=== PATIENT | male | born 1980 | race Two or more races ===

== ENCOUNTER 2019-01-11 00:55 | Emergency (ER) | payer MEDICAID ==
[~2019-01-11] VITALS: Ht 177.8 cm; Wt 95.7 kg
--- NOTE | 2019-01-11 01:23 | NUR ---
CANDELARIO FROM STREET. TO ER BED 12. DROWSY BUT AAO. NO RESP DISTRESS, BRAETHING EVEN AND UNLABORED. BROUGHT IN FOR HEROIN OVERBOSE. PER EMS REPORT, PT TOOK HEROIN, FOUNFD THE NEEDLE IN HIS POCKET. EMS REPORT THAT PT'S GIRLFRIEND WAS PERFORMING CPR. EMS GAVE PT 2MG NARCAN VIA IV AND WOKE UP. WAS AT BEDSIDE FOR EVAL. PT PLACED ON 02 VIA NC @ 3LPM D/T O2 SAT NOTED IN THE 80S. AWAITING FOR FURTHER ORDERS.
--- NOTE | 2019-01-11 07:12 | NUR ---
PT IN BED SLEEPING. ARROUSABLE WITH TACTILE STIMULI.
--- NOTE | 2019-01-11 07:26 | NUR ---
PT ENDORSED TO YURIY GILLILAND FOR DARI
--- NOTE | 2019-01-11 07:32 | NUR ---
PT SLEEPING SOUNDLY RESP EVEN UNLABORED . FAMILY AT BEDSSIDE AWAITING EVALUATION BY ER PROVIDER.
--- NOTE | 2019-01-11 08:49 | NUR ---
PT ABLE TO AMB WITHOUT DIFF IV removed. Catheter intact and site benign. Pressure and 4x4 applied to site. No bleeding noted.PT. VERBALIZED UNDERSTANDING OF AFTERCARE INSTRUCTIONS.
[2019-01-11 08:50] VITALS: BP 106/72
== END 2019-01-11 08:51 | disposition home or self-care (01) ==
LOC: ER 00:58
DX: T40.1X1A Poisoning by heroin, accidental (unintentional), initial encounter (principal); Y92.89 Other specified places as the place of occurrence of the external cause

== ENCOUNTER 2019-03-19 07:05 | Emergency (ER) | payer MEDICAID ==
[~2019-03-19] VITALS: Ht 180.3 cm; Wt 93.0 kg
[2019-03-19] MEDS ORDERED: IBUPROFEN 600 MG TABLET PO ONE (07:42)
[2019-03-19] MEDS ORDERED: CEPHALEXIN MONOHYDRATE 500 MG CAPSULE PO ONE (07:42)
[2019-03-19] MEDS ORDERED: SULFAMETH/TRIMETH 800/160 MG 1 UDTAB TABLET ONE ×2 (07:43→07:46)
--- NOTE | 2019-03-19 07:45 | NUR ---
C/O MULTIPLE BLE ABSCESS, R FOREARM ABSCESS X1 MONTH. R EAR DIFFICULTY HEARING X1 MONTH. PATIENT A/OX4, BREATHING EVEN AND UNLABORED, NO SOB NOTED. NEEDS ATTENDED.
[2019-03-19] MEDS: CEPHALEXIN MONOHYDRATE 500 MG CAPSULE PO ONE (08:00)
[2019-03-19] MEDS: IBUPROFEN 600 MG TABLET PO ONE (08:00)
[2019-03-19] MEDS: SULFAMETH/TRIMETH 800/160 MG 1 UDTAB TABLET PO ONE (08:00)
--- NOTE | 2019-03-19 08:03 | NUR ---
Patient discharged to home in stable condition. Written and verbal after care instructions given. Patient verbalizes understanding of instruction.
[2019-03-19 08:04] VITALS: BP 126/75
== END 2019-03-19 08:04 | disposition home or self-care (01) ==
LOC: ER 07:05
DX: L73.9 Follicular disorder, unspecified (principal); H61.21 Impacted cerumen, right ear; F19.10 Other psychoactive substance abuse, uncomplicated; F17.200 Nicotine dependence, unspecified, uncomplicated; Z98.890 Other specified postprocedural states; Z59.0 Homelessness
CPT/HCPCS: 69209; 99284; A6403

== ENCOUNTER 2019-08-04 18:18 | Emergency (ER) | payer OTHER, MEDICAID ==
[~2019-08-04] VITALS: Ht 170.2 cm; Wt 83.9 kg
[2019-08-04 18:34] VITALS: BP 144/81
--- NOTE | 2019-08-04 21:20 | NUR ---
Patient discharged to PD in stable condition. Written and verbal after care instructions given. Patient verbalizes understanding of instruction.
== END 2019-08-04 21:22 ==
LOC: ER 18:18
DX: B34.9 Viral infection, unspecified (principal); Z98.890 Other specified postprocedural states
CPT/HCPCS: 71045 ×2; 99283; J7030

== ENCOUNTER 2021-02-23 07:39 | Inpatient (IN) | payer MEDICAID, OTHER ==
[~2021-02-23] VITALS: Ht 177.8 cm; Wt 84.4 kg
--- NOTE | 2021-02-23 07:46 | NUR ---
BIB RA 86 FROM THEIR STATION,C/O COUGH AND CONGESTION X 2 DAYS. THE PATIENT IS RECEIVED ON OXYGEN AT 6L/MIN VIA SIMPLE MASK. ALERT AND ORIENTED X2. ATTACHED TO THE MONITOR. WILL CONTINUE TO MONITOR THE PATIENT.
[2021-02-23] MEDS ORDERED: IV NS 0.9% 1,000 ML BAG IV ONE (08:00)
[2021-02-23] MEDS ORDERED: CEFTRIAXONE 1GM BAG (ER ONLY) 50 ML IV ONE (08:00)
[2021-02-23] MEDS ORDERED: ACETAMINOPHEN 650 MG/SUPP.RECT RC ONE ×2 (08:00→08:30)
[2021-02-23] MEDS ORDERED: DEXAMETHASONE SOD PHOSPHATE 10 MG/ML VIAL IV ONE (08:00)
--- NOTE | 2021-02-23 08:13 | NUR ---
STARTED IV, BLOOD SPECIMEN COLLECTED AND SENT TO THE LAB.
--- NOTE | 2021-02-23 08:24 | NUR ---
URINE COLLECTED AND SENT TO THE LAB
[2021-02-23 08:28] LABS: BASOPHILS % (AUTO) 0.4 % (0.0-2.0); EOSINOPHILS % (AUTO) 1.4 % (0.0-6.0); HEMATOCRIT 43 % (39-51); HEMOGLOBIN 14.3 g/dL (13.5-17.5); LYMPHOCYTES # (AUTO) 0.7 K/uL (0.8-4.8); LYMPHOCYTES % (AUTO) 6.7 % (20.0-44.0); MEAN CORPUSCULAR HGB CONC 33 g/dl (31.0-36.0); MEAN CORPUSCULAR VOLUME 90 fL (80-96); MONOCYTES # (AUTO) 0.9 K/uL (0.1-1.30); MONOCYTES % (AUTO) 8.5 % (2.0-12.0); PLATELET COUNT (AUTO) 253 K/uL (150-450); RED BLOOD CELL COUNT(AUTO) 4.79 MIL/uL (4.5-6.0); WHITE BLOOD COUNT (AUTO) 10.8 K/uL (4.3-11.0)
[2021-02-23] MEDS ORDERED: DIVALPROEX SODIUM 250 MG TABLET.DR PO ONE (08:30)
[2021-02-23] MEDS ORDERED: DEXAMETHASONE SOD PHOSPHATE 10 MG/ML VIAL ONE (08:30)
[2021-02-23 08:32] LABS: CALCIUM, SERUM 8.8 mg/dL (8.5-10.1); CARBON DIOXIDE 25 mmol/L (21-32); CHLORIDE 105 mmol/L (98-107); CREATININE 0.9 mg/dL (0.6-1.3); GLUCOSE 95 mg/dL (74-106); POTASSIUM 3.5 mmol/L (3.5-5.1); SODIUM SERUM 140 mmol/L (136-145); UREA NITROGEN, BLOOD 10 mg/dL (7-18)
--- NOTE | 2021-02-23 08:38 | NUR ---
X-RAY TECH AT THE BEDSIDE
--- NOTE | 2021-02-23 08:47 | NUR ---
RT ABG RESULTS SHOWN TO DR. MARTIN. PLACED PT ON 3 LPM NC. SpO2 97%. HFNC ORDER DISCONTINUED.
[2021-02-23 08:49] LABS: BILIRUBIN,URINE SMALL (NEGATIVE); COLOR,URINE AMBER (YELLOW); LEUKOCYTE ESTERASE ,URINE Negative (NEGATIVE); NITRITE, URINE Negative (NEGATIVE); PROTEIN,URINE Negative (NEGATIVE); UGLUCOSE Negative (NEGATIVE); UROBILINOGEN,URINE 0.2 EU/dL (0.2)
[2021-02-23 08:52] LABS: ALANINE AMINOTRANSFERASE 28 U/L (12-78); ALBUMIN 4.1 g/dL (3.4-5.0); ALKALINE PHOSPHATASE 145 U/L (46-116); ASPARTATE AMINOTRANSFERASE 22 U/L (15-37); BILIRUBIN,TOTAL 0.7 mg/dL (0.2-1.0); TOTAL PROTEIN, SERUM 8.3 g/dL (6.4-8.2)
[2021-02-23 08:58] LABS: BACTERIA,URINE Rare /HPF (None Seen); SQUAMOUS EPITHELIAL CELL,UR Rare /HPF (None Seen); WBC,URINE 0-2 /HPF (0-3)
[2021-02-23 09:00] LABS: CREATINE KINASE, TOTAL 279 U/L (39-308); FERRITIN 279 ng/mL (8-388)
[2021-02-23 09:06] LABS: C-REACTIVE PROTEIN 4.9 mg/dL (0.0-0.9)
--- NOTE | 2021-02-23 09:46 | NUR ---
covid swab and rapid influenza swabs done and sent to the lab
--- NOTE | 2021-02-23 09:47 | NUR ---
REQUESTED MED SURG BED FROM NURSING SUP.
--- NOTE | 2021-02-23 10:03 | NUR ---
THE PATIENT IS ON OXYGEN AT 3L/MIN VIA NASAL CANNULA AND SATURATION IS AT 99%
--- NOTE | 2021-02-23 10:04 | NUR ---
ROOM 105
[2021-02-23 10:07] LABS: D-DIMER 1.02 mg/L(FEU (0.17-0.50)
[2021-02-23] MEDS ORDERED: CT SWABBABLE VALVE TRANS SET 1 EA INFUS.SET MC ONE (10:24)
[2021-02-23] MEDS ORDERED: IV NS 0.9% 250 ML IV ONE (10:24)
[2021-02-23] MEDS ORDERED: IOHEXOL-350 100 ML VIAL IV ONE (10:24)
[2021-02-23] MEDS ORDERED: ONDANSETRON HCL/PF 4 MG/2 ML VIAL IVP PRN (10:30)
[2021-02-23] MEDS ORDERED: Z GUARD REMEDY 2 OZ OINT TP PRN (10:30)
[2021-02-23] MEDS ORDERED: ACETAMINOPHEN 325 MG TABLET PO PRN (10:30)
--- NOTE | 2021-02-23 10:33 | NUR ---
THE PATIENT IS TAKEN TO CT
--- NOTE | 2021-02-23 10:42 | NUR ---
THE PATIENT IS BACK FROM CT
[2021-02-23] MEDS ORDERED: ENOXAPARIN SODIUM 40 MG/0.4 ML DISP.SYRIN SQ ONE (12:04)
[2021-02-23] MEDS ORDERED: AZITHROMYCIN 500 MG VIAL ONE ×2 (12:05→12:09)
--- NOTE | 2021-02-23 12:18 | NUR ---
REPORT GIVEN TO BRIGHT YAN. ROOM 105. TRASFERRED PT PER PROTOCOL. VS STABLE
--- NOTE | 2021-02-23 12:20 | NUR ---
FACILITY SERVICE ASSOCIATE NOTE- 40 Y/O MALE PT ADMITTED FOR CONGESTION/SOB/COUGH AND GENERAL MALAISE X TWO DAYS. PT ADMITTING DX - R/O COVID. CXR - UNREMARKABLE, CHEST CT NO INFILTRATES, LLL ATELECTASIS, LABS UNREMARKABLE. VS STABLE , COVID PCR PENDING. PT BRADFORD W FROM, SKIN INTACT, ALERT ORIENTED PERSON PLACE PURPOSE. PT ON 0S AT 3LPM VIA NC. CHEST - DIMINISHED BREATH SOUNDS ON AUSCULTATION, NO WHEEZING, NO RHONCHI. SATS ARE 97%. SIDE RAILS UP X 2, BED LOCKED, CALL LIGHT CLOSE. ORDERS RECEIVED AND COMPLIED WITH. MONITOR AND ASSIST
[2021-02-23] MEDS: AZITHROMYCIN 500 MG in IV D5W 250 ML IV SCH (13:32)
[2021-02-23] MEDS: ENOXAPARIN SODIUM 40 MG/0.4 ML DISP.SYRIN SQ SCH (13:38)
--- NOTE | 2021-02-23 18:39 | NUR ---
RN CLOSING NOTE- PT SITTING IN ROOM EATING DINNER. PT AOX4, CALM INTERACTIVE . CHEST W DIMINISHED BREATH SOUNDS, DRY NON-PRODUCTIVE COUGH PRESENT. O2 SATS AT 96% ON 3LPM VIA NC. VOIDING IN URINAL. GOOD PO INTAKE AND FLUIDS . SIDE RAILS UP X 2, BED LOCKED, CALL LIGHT CLOSE
[2021-02-23 20:00] VITALS: BP 113/78
--- NOTE | 2021-02-23 20:00 | NUR ---
RN NOTE PT AWAKE, ALERT AND ORIENTED X 4. NON PRODUCTIVE COUGH NOTED. ON O2 VIA NC AT 3LPM. COMPLAINED OF MILD SOB, NO DISTRESS NOTED. TOLERATING O2. PT ABLE TO USE URINAL, CONTINENT. CALL LIGHT WITHIN REACH, ALL SAFETY IN PLACE. WILL CONTINUE TO MONITOR.
[2021-02-24] VITALS: BP 139/80
[2021-02-24 04:00] VITALS: BP 143/87
[2021-02-24] MEDS: IBUPROFEN 400 MG TABLET PO PRN ×3 (04:59→23:51)
--- NOTE | 2021-02-24 07:00 | NUR ---
RN NOTE PT TOLERATING O2 THERAPY. DENIES SOB AT THIS TIME. COMPLAINED OF PAIN ON CHEST AREA WHILE COUGHING, NON RADIATING, REQUESTED FOR MOTRIN, GIVEN ORDERED. NO SIGNS OF DISTRESS NOTED. CONTINUE ON TELE MONITORING SR/SB. IV ON RAC GOT PULLED OUT. NEW IV LINE INSERTED ON LFA 22G. WITH GOOD BLOOD RETURN. FLUSHES WELL. ALL SAFETY MEASURES MAINTAINED. WILL ENDORSE TO NEXT SHIFT NURSE FOR DARI.
--- NOTE | 2021-02-24 07:30 | NUR ---
MS RN NOTE PT AWAKE, ALERT AND ORIENTED X 4. AFEBRILE.NON PRODUCTIVE COUGH NOTED. ON O2 VIA NC AT 3LPM. O2 SAT 99%. COMPLAINED OF MILD SOB, NO DISTRESS NOTED. REGULAR DIET, PT ABLE TO USE URINAL, CONTINENT. POC DISCUSSED, VERBALIZED UNDERSTANDING.CALL LIGHT WITHIN REACH, ALL SAFETY IN PLACE. WILL CONTINUE TO MONITOR.
[2021-02-24 08:00] VITALS: BP 135/97
--- NOTE | 2021-02-24 09:30 | NUR ---
RN NOTES DUE MEDS GIVEN
[2021-02-24] MEDS: DEXAMETHASONE SOD PHOSPHATE 4 MG/ML VIAL IV SCH (10:12)
[2021-02-24] MEDS: CEFTRIAXONE 1 G in IV D5W 50 ML IV SCH (10:12)
[2021-02-24] MEDS: ENOXAPARIN SODIUM 40 MG/0.4 ML DISP.SYRIN SQ SCH (10:13)
[2021-02-24 12:50] LABS: ALBUMIN 3.2 g/dL (3.4-5.0); BILIRUBIN,TOTAL 0.2 mg/dL (0.2-1.0); CALCIUM, SERUM 8.5 mg/dL (8.5-10.1); CREATININE 0.9 mg/dL (0.6-1.3); MAGNESIUM 2.1 mg/dL (1.8-2.4); PHOSPHORUS 2.5 mg/dL (2.5-4.9); POTASSIUM 3.7 mmol/L (3.5-5.1); TOTAL PROTEIN, SERUM 7.4 g/dL (6.4-8.2)
[2021-02-24 13:02] LABS: BASOPHILS % (AUTO) 0.2 % (0.0-2.0); EOSINOPHILS % (AUTO) 0.9 % (0.0-6.0); HEMATOCRIT 42 % (39-51); HEMOGLOBIN 13.9 g/dL (13.5-17.5); LYMPHOCYTES # (AUTO) 0.9 K/uL (0.8-4.8); LYMPHOCYTES % (AUTO) 8.7 % (20.0-44.0); MEAN CORPUSCULAR HGB CONC 33 g/dl (31.0-36.0); MEAN CORPUSCULAR VOLUME 90 fL (80-96); MONOCYTES # (AUTO) 0.3 K/uL (0.1-1.30); MONOCYTES % (AUTO) 2.6 % (2.0-12.0); NEUTROPHILS # (AUTO) 9.5 K/uL (1.8-8.9); NEUTROPHILS % (AUTO) 87.6 % (43.0-81.0); PLATELET COUNT (AUTO) 301 K/uL (150-450); RED BLOOD CELL COUNT(AUTO) 4.68 MIL/uL (4.5-6.0); WHITE BLOOD COUNT (AUTO) 10.8 K/uL (4.3-11.0)
[2021-02-24] MEDS: AZITHROMYCIN 500 MG in IV D5W 250 ML IV SCH (13:42)
--- NOTE | 2021-02-24 14:51 | NUR ---
RN NOTES DR. STOUT SAW PT KHADIJAH, FOR CONSULT WITH DR. SHANNON TAVARES RE LIVER AND KIDNEY LESIONS.
[2021-02-24 16:00] VITALS: BP 123/86
--- NOTE | 2021-02-24 16:18 | NUR ---
SS consult: c Completed & written by YAMEL, Yuridia Delgado: SS consult for homeless. Pt. is a 40-year-old male who was brought in by the ambulance. Per pt., his friend Manish [unknown contact] dropped him off at the fire station. During assessment, pt. is in bed laying down, oriented x3, and alert. Pt. was capable of following directions and made appropriate eye contact during interview. YAMEL explored pt.s mental health and drug abuse. Pt. reported having depression as a child. Per pt., he went to therapy. Pt. stated he no longer has depression. Pt. reported having a drinking problem in the past. Per pt., he lives with his two friends Rufino and her sister [[address] [facility]. [phone]]. YAMEL explored pt.s support system. Pt. stated his girlfriend Judi and his friend Rufino are his two main support system. Pt. is independent with his ADLs. YAMEL explored pt.s financial situation. 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 Plan: Pt. stated he will be return to his living arrangement [[address] [facility] when ready for DC. Per pt., his friend Rufino will be picking him up. Pt. was willing to sign the Homeless Patient Waiver Form. YAMEL provided pt. with homeless resources and pt. accepted. Resources Provided: Behavioral Health and Substance Abuse Referrals and Clinics for Screening [facility] [address] [place] [address] Not a custodial, do not send patients there for shelters. Homeless resources. Appointment is needed. [phone] Services include comprehensive field-based mental health services, with case management and medication support services. Laundry, shower and locker facilities are available. APPLICATION PROCEDURE Call the central intake number for information about all programs provided by the agency and to schedule appointments. Homeless mentally ill people may be seen at [facility] on a walk-in basis. [facility] (Behavioral Health) [address] [facility], 2nd [place] [address] Main Number: [facility] ([facility]): Contact [facility] [address] [place] [address] Walk-in for psychiatric consultation HOURS: Sat-Sat 8am--7pm Saturdays 9am--5:30pm Closed on Sundays Clinic stated that walk-ins are welcome, but there will be a long wait. No appointments. Services: mental health services, medications, community pharmacist for resource linkage. [facility] (Behavioral Health) [facility] Walk-in during certain hours [place]LO [place] [id number] Operation Hours: SAT - SAT 8:00 a.m. - 5:00 p.m. Walk In Hours: SAT - SAT 8:00 a.m. - 5:00 p.m. Services by Age: Adults and Older Adults Mental Health Services: Field Capable Clinical Services (FCCS) Medication Support Mental Health Services Peer Support NOTE: ACCESS Center 19/11 helpline: Adolescent and Childrens Psychiatric Treatment [facility] Coordinated Childrens Services Crisis stabilization, medication support mental health services [address] [facility] [id number] Appointment needed Counseling [facility] [place] for Individual and Family Counseling Appointment needed [address] [facility] [id number] Counseling [facility] scale [address] [facility]. [address] [facility] [address] Healthcare Clinics [facility] [address] [facility], Vaccines and infectious disease resource [address] [place]. [place] Hours: M, T, Th, F 8:30AM-4:30PM Walk-ins allowed Provide medical screening and pharmacy [facility] [address] [facility] [address] [place] [address] Vaccines and infectious diseases Hours M-F 8AM-3:30PM Walk-ins allowed Provide medical screening and pharmacy [facility] [address] [facility] [place] [address] Hours 8AM-4:30PM Walk-ins allowed Provide medical screening and pharmacy Alcohol and Drug Treatment Programs [facility] Substance Abuse Self-helpline ([facility]) Substance Abuse Contact number . Call the hotline and the caustic room operator will screen and link individual to an appropriate program. Must have Medi-mian or be Medi-mian eligible. [facility] [address] [facility] [place] [id number] [facility] [address] [place] [address] Appointment needed Intake at 8.00 am but this does not mean acceptance [facility] Rehabilitation Program (Sikh based) [address] [facility] [place] [address] (Six months program and need to work for 8 hrs per day while in treatment) [facility] (No insurance required) [address] [place] [place] [address] [place] [id number] [facility] [address] Closed on Saturday Open Saturday through Saturday 9 am -6 pm Saturday 10am 5 pm Closed on Saturday [facility] and Women [phone] [place] [phone] Prefer phone calls. They do allow walk-ins but prefer appointments.
--- NOTE | 2021-02-24 19:03 | NUR ---
RN CLOSING NOTES MED SURG PT IS ALERT AND ORIENTED X4 RESTING IN BED AT THIS TIME, CONSENT OBTAINED FOR ABDOMEN/PELVIS CT SCAN WITH CONTRAST TOMORROW. O2 SATS AT 97% ON 3LPM VIA NC. DRY NON-PRODUCTIVE COUGH PRESENT. NO SOB, RESPIRATION UNLABORED. INDEPENDENT WITH ADLs. SAFETY MEASURES IN PLACE, BED LOCKED AND IN LOWEST POSITION CALL LIGHT WITHIN REACH. ALL NEEDS MET. WILL ENDORSE TO NEWSPAPER OR PERIODICAL EDITOR NURSE.
--- NOTE | 2021-02-24 19:30 | NUR ---
RN OPENING NOTES: RECEIVED PT A/OX4 IN BED IN NO S/SX OF ACUTE DISTRESS AT THIS TIME. NO SOB NOTED. PATIENT'S BREATHING IS EVEN AND UNLABORED. PATIENT IS ON 3L OF OXYGEN VIA NC; TOLERATING WELL. PATIENT ON TELE MONITORING READING SINUS RHYTHM HR IS @80s AT THE TIME OF RECEIVED. PATIENT ON REGULAR DIET; TOLERATES WELL. NOTED IV SITE ON L FA #[id number]; PATENT, INTACT AND FLUSHING WELL; NO S/S OF INFECTION OR INFILTRATION. SAFETY MEASURES HAVE BEEN PROVIDED AND IMPLEMENTED. PATIENT BED ALARM IS ON. HEAD OF BED ELEVATED. BED IS LOCKED, IN LOWEST POSITION AND SIDE RAILS UP. CALL LIGHT WITHIN REACH OF THE PATIENT. APPLICABLE ISOLATION PRECAUTIONS IN PLACE. WILL CONTINUE TO MONITOR AND REASSESS FOR ANY CHANGES AND WILL CARRY OUT ANY ONGOING AND ACTIVE MD ORDER.
[2021-02-24 20:00] VITALS: BP 110/77
[2021-02-25] VITALS: BP 117/71
--- NOTE | 2021-02-25 | NUR ---
RN NOTES PATIENT REMAINED TO BE IN NO SIGNS OF ACUTE RESPIRATORY DISTRESS , VITAL SIGNS WNL AT THIS TIME. HEBREW CANTOR MADE AWARE. WILL CONTINUE TO MONITOR AND REASSESS FOR ANY CHANGES THROUGHOUT THE SHIFT.
[2021-02-25 04:00] VITALS: BP 110/66
--- NOTE | 2021-02-25 04:00 | NUR ---
RN NOTES NO NOTED CHANGES IN PATIENT CONDITION AT THIS TIME; PATIENT VITALS STABLE, NO SIGNS OF ACUTE RESPIRATORY DISTRESS. AM PATIENT CARE RENDERED.WILL CONTINUE TO MONITOR AND REASSESS FOR ANY CHANGES THROUGHOUT THE SHIFT.
--- NOTE | 2021-02-25 06:50 | NUR ---
RN CLOSING NOTE: PATIENT REMAINS IN ROOM IN NO SIGNS OF RESPIRATORY DISTRESS, PATIENT STILL ON 1L OF O2 VIA NC ;TOLERATING WELL SATURATING @ >95% SP02. SAFETY MEASURES IMPLEMENTED, BED IN LOWEST POSITION, LOCKED, SIDE RAILS UP, CALL LIGHT WITHIN REACH. ALL NEEDS AND ORDERS ADDRESSED DURING THE SHIFT. IV ACCESS MAINTAINED INTACT, SECURED AND FLUSHING WELL. ALL DUE MEDS GIVEN ORDERED & SCHEDULED ; PATIENT TOLERATED WELL. PATIENT KEPT CLEAN AND COMFORTABLE WITHIN THE SHIFT. PATIENT ENDORSED TO INCOMING SHIFT RN WITH STABLE VITAL SIGN AND FOR CONTINUITY OF CARE.
[2021-02-25 08:00] VITALS: BP 116/71
[2021-02-25] MEDS: DEXAMETHASONE SOD PHOSPHATE 4 MG/ML VIAL IV SCH (09:04)
[2021-02-25] MEDS: CEFTRIAXONE 1 G in IV D5W 50 ML IV SCH (09:04)
[2021-02-25] MEDS: ENOXAPARIN SODIUM 40 MG/0.4 ML DISP.SYRIN SQ SCH (09:05)
[2021-02-25] MEDS ORDERED: IOHEXOL-350 100 ML VIAL IV ONE (11:38)
[2021-02-25] MEDS ORDERED: IV NS 0.9% 250 ML IV ONE (11:38)
[2021-02-25] MEDS: AZITHROMYCIN 500 MG in IV D5W 250 ML IV SCH (12:27)
--- NOTE | 2021-02-25 12:52 | NUR ---
RN NOTE PATIENT WANTS TO LEAVE AGAINST MEDICAL ADVICE, UNDER DR. STOUT, EPIC CALLED AND TRIED TO REACH FOR MD.
--- NOTE | 2021-02-25 12:54 | NUR ---
RN NOTE PER MD OK TO LEAVE AGAINST MEDICAL ADVICE, PATIENT SIGNED AMA FORM.
== END 2021-02-25 12:56 | disposition home or self-care (01) | DRG 139 ==
LOC: ER 07:48 → TELE1 12:05 → MEDSG1 02-24 08:21 → TELE1 02-24 21:07 → MEDSG1 02-25 09:00
PROVIDERS: ADMIT Internal Medicine; ATTEND Internal Medicine
DX: J15.9 Unspecified bacterial pneumonia (principal); J96.01 Acute respiratory failure with hypoxia; J98.11 Atelectasis; N28.89 Other specified disorders of kidney and ureter; K76.9 Liver disease, unspecified; Z20.822 Contact with and (suspected) exposure to COVID-19; Z59.00 Homelessness unspecified; Z87.81 Personal history of (healed) traumatic fracture; V89.2XXS Person injured in unspecified motor-vehicle accident, traffic, sequela; Z98.890 Other specified postprocedural states
CPT/HCPCS: 36415; 36600; 71045-TC; 80053-TC; 80061-TC; 81001; 82105; 82378; 82550-TC; 82728-TC; 82803-TC; 83605-TC; 83615-TC; 83735-TC; 83880; 84100-TC; 84484-TC; 85025-TC; 85378-TC; 85385-TC; 85610-TC; 85730-TC; 86140-TC; 86301; 86706; 86803; 87040-TC; 87081-TC; 87086-TC; 87340; G0378; J0456; J0696; J1100; J1650; J7040; J7050; J7060; Q9967; U0003